=== PATIENT | female | born 1980 | race Caucasian/White ===

== ENCOUNTER 2020-07-28 10:41 | Outpatient (CLI) | payer BC ==
--- NOTE | 2020-07-28 11:01 | ULT ---
EXAM: US Breast Limited Lt PROVIDED CLINICAL HISTORY: 6 month follow-up COMPARISON: 01/27/2020 FINDINGS: Limited sonographic interrogation of the left breast was performed at the 3:00 position. There is a s table oval, circumscribed mass measuring about 1.2 cm in this location with features suggesting an intramammary lymph node. IMPRESSION: Stable exam. Six-month follow-up examination is recommended, at which time the patient will be due fo r annual mammography. BI-RADS 3 -- probably benign, 6-month follow-up
== END 2020-07-28 10:42 | disposition home or self-care (01) ==
LOC: BICULT 10:41
PROVIDERS: ATTEND Family Medicine
DX: R92.2 Inconclusive mammogram (principal)

== ENCOUNTER 2021-02-03 14:51 | Outpatient (CLI) | payer BC | END 2021-02-03 14:52 | disposition home or self-care (01) | LOC: BICMAMMO 14:51 | PROVIDERS: ATTEND Family Medicine | DX: R92.8 Other abnormal and inconclusive findings on diagnostic imaging of breast (principal) | CPT/HCPCS: 77066; G0279 ==

== ENCOUNTER 2022-09-06 08:53 | Outpatient (CLI) | payer BC | END 2022-09-06 08:54 | disposition home or self-care (01) | LOC: BICMAMMO 08:53 | PROVIDERS: ATTEND Obstetrics & Gynecology | DX: Z12.31 Encounter for screening mammogram for malignant neoplasm of breast (principal); Z80.3 Family history of malignant neoplasm of breast | CPT/HCPCS: 77063; 77067 ==